=== PATIENT | male | born 1975 | race Caucasian/White ===

== ENCOUNTER 2018-03-14 12:08 | Observation (INO) ==
[2018-03-14] MEDS ORDERED: 0.9 % Sodium Chloride 1,000 ML IVC ONE (12:38)
[2018-03-14] MEDS ORDERED: Doxycycline 100 MG CAPSULE PO ONE (12:43)
--- NOTE | 2018-03-14 12:44 | Emergency Department Note ---
Disposition Clinical Impression: Lingular pneumonia, Hyponatremia Disposition: Home, Self-Care Condition: Good Time of Disposition: 08:30 (Dr Brantley) General Adult HPI - General Chief complaint: ED General Medical Stated complaint: Snake Bite Time Seen by Provider: 03/14/18 12:18 Source: patient Mode of arrival: ambulatory Limitations: no limitations Nursing Notes Reviewed: Yes Vital Signs Reviewed: Yes - History of Present Illness HPI Narrative: 42-year-old male who was supposed to come to the ED last night secondary to snakebite. He states he was been approximately 1-2 weeks ago but appeared to have improving snakebite area. He states having intermittent chills with fever in the last week. He also adds having multiple tick bites in the last 2 weeks or so. He denies any sick contacts or any changes in his bladder or bowel habits. He states fever seems to improve with over-the- counter medication. He was given Bactrim by his friend for 2 days with no improvement. Onset (ago): week(s) (1) Location: other (Generalized body aches with intermittent fever) Radiation: non-radiation Pain Severity: mild Quality: aching Consistency: constant (Waxing and waning) Improves with: nothing Worsens with: nothing Associated symptoms: Reports: fever/chills, headaches, malaise, weakness. Denies: confusion, chest pain, cough, diaphoresis, rash, seizure, shortness of breath, syncope Treatments Prior to Arrival: none - Related Data Previous Rx's Medication Instructions Recorded Cefuroxime PO [Ceftin] 500 mg PO Q12HR #10 tablet 03/16/18 Doxycycline 100 mg PO BID #10 capsule 03/16/18 Lactobacillus [Culturelle] 1 each PO BID #10 cap.sprink 03/16/18 Allergies Allergy/AdvReac Type Severity Reaction Status Date / Time No Known Allergies Allergy Verified 03/14/18 12:09 All systems ED: reviewed and negative except as stated. Review of Systems: As Per HPI Past Medical History - Past Medical History Medical history: Reports: no medical history Psychiatric history: Reports: no psych history - Social History Smoking Status: Current every day smoker Smokeless Tobacco Status: No Alcohol use: Reports: occasionally Drug use: Reports: none Physical Exam - General Limitations: no limitations General appearance: alert, in no apparent distress - Head Head exam: atraumatic, normocephalic, normal inspection - Eye Eye exam: Present: normal appearance, PERRL, EOMI - ENT ENT exam: normal exam, normal oropharynx, mucous membranes moist - Neck Neck exam: Present: normal inspection, full ROM, trachea midline. Absent: meningismus, lymphadenopathy - Chest Chest inspection: Present: normal inspection, symmetric chest wall rise - Respiratory Respiratory exam: Present: normal lung sounds bilaterally - Cardiovascular Cardiovascular exam: Present: regular rate, normal rhythm, normal heart sounds - Abdominal Exam Abdominal exam: Present: soft, Non-Tender. Absent: tenderness, distention, guarding, rebound, rigidity - Extremities Exam Extremities exam: Present: normal inspection, full ROM. Absent: tenderness, pedal edema - Back Exam Back exam: Present: normal inspection, full ROM. Absent: tenderness - Neurological Exam Neurological exam: Present: alert, oriented X3 - Psychiatric Psychiatric exam: Present: normal affect, normal mood - Skin Skin exam: Present: warm, dry, pallor. Absent: diaphoresis - Expanded Skin Exam Type of lesion: Present: bite/sting (Notable in bilateral lower extremities and the right patella fossa. Snake bite on the right lower posterior leg is clear dry intact with no surrounding erythema, induration or fluctuance.) Course Vital Signs Temperature 100.3 F H 03/14/18 12:09 Pulse Rate 104 03/14/18 12:09 Respiratory Rate 16 03/14/18 12:09 Blood Pressure 105/71 03/14/18 12:09 O2 Sat by Pulse Oximetry 95 03/14/18 12:09 Temperature 97.8 F 03/16/18 06:00 Pulse Rate 81 03/16/18 06:00 Respiratory Rate 17 03/16/18 06:00 Blood Pressure 95/59 03/16/18 06:00 O2 Sat by Pulse Oximetry 97 03/16/18 11:10 Oxygen Delivery Oxygen Delivery Room Air Medical Decision Making - [facility] Narrative Medical decision making narrative: Nontoxic appearing patient with intermittent bouts of fever and chills. He is positive for lingular pneumonia on chest x-ray. The patient was given doxycycline initially for concern for potential is tick bite complication. The patient also was given ceftriaxone for the pneumonia. He will be admitted to the hospital for further treatment and evaluation. - Medical Records Medical records reviewed: Yes I reviewed the patient's medical records. - Lab Data Lab results reviewed: Yes I reviewed the patient's lab results. Result diagrams: 05/22/18 06:30 03/16/18 06:30 Lab Results 03/14/18 03/14/18 03/14/18 Range/Units 13:00 13:00 13:00 WBC 5.1 (4.3-11.1) K/mcL RBC 4.82 (4.19-5.50) M/mcL Hgb 14.7 (12.9-16.9) g/dL Hct 42.2 (37.5-50.1) % MCV 87.6 (83.0-100.0) fL MCH 30.5 (28.0-33.3) pg MCHC 34.8 (31.6-35.5) g/dL RDW 12.7 (11.5-14.5) % Plt Count 223 (140-400) K/mcL MPV 8.6 L (9.4-12.4) fL Seg Neutrophils % 46.0 % Band Neutrophils % 28.0 H (0-4) % Lymphocytes % 18.0 % Basophils % 2.0 % Metamyelocytes % 4.0 H (0) % Myelocytes % 2.0 H (0) % Neutrophils # 3.8 (1.6-8.9) K/mcL Lymphocytes # 0.9 (0.6-4.6) K/mcL Basophils # 0.1 (0.0-0.2) K/mcL ESR 18 H (0-15) mm/hr Sodium 127 L (136-145) mEq/L Potassium 4.2 (3.5-5.1) mEq/L Chloride 94 L (98-107) mEq/L Carbon Dioxide 27 (23-29) mEq/L BUN 13 (6-20) mg/dL Creatinine 1.17 (0.70-1.30) mg/dL Est GFR ( Amer) > 60 (> 60) Est GFR (Non-Af Amer) > 60 (> 60) BUN/Creatinine Ratio 11 (6-26) Glucose 99 (70-105) mg/dL Calculated Osmolality 264 L (280-300) Calcium 8.7 (8.6-10.3) mg/dL Magnesium 2.3 (1.6-2.6) mg/dL Total Bilirubin 1.1 H (0.3-1.0) mg/dL Direct Bilirubin 0.3 H (0.0-0.2) mg/dL Indirect Bilirubin 0.8 (0.0-1.2) mg/dL AST 39 (13-39) Units/L ALT 41 (7-52) Units/L Alkaline Phosphatase 89 (34-104) Units/L Serum Total Protein 7.1 (6.4-8.9) g/dL Albumin 3.9 (3.5-5.7) g/dL Globulin 3.2 (2.4-3.5) g/dL Albumin/Globulin Ratio 1.2 (1.1-2.2) TSH 1.850 (0.340-5.600) mcIU/mL Urine Color (Yellow) Urine Clarity (Clear) Urine pH (5.0-8.0) pH Units Ur Specific [place] (1.010-1.025) Urine Protein (Neg-Trace) mg/dL Urine Glucose (UA) (Normal) mg/dL Urine Ketones (Negative) mg/dL Urine Blood (Negative) Urine Nitrite (Negative) Urine Bilirubin (Negative) Urine Urobilinogen (Normal) mg/dL Ur Leukocyte Esterase (Negative) Ur Culture Indicated? (NO) Urine Opiates Screen (Eillvg=179) ng/mL Ur Oxycodone Screen (Cutoff= 100) ng/mL Ur Barbiturates Screen (Xjsymp=075) ng/mL Ur Phencyclidine Scrn (Cutoff=25) ng/mL Ur Amphetamines Screen (Zlbpom=1317) ng/mL U Benzodiazepines Scrn (Dtuwhv=191) ng/mL Urine Cocaine Screen (Cutoff= 300) ng/mL U Marijuana (THC) Screen (Cutoff = 50) ng/mL NINA Screen (None Detected) 03/14/18 03/14/18 03/14/18 Range/Units 13:00 15:02 15:02 WBC (4.3-11.1) K/mcL RBC (4.19-5.50) M/mcL Hgb (12.9-16.9) g/dL Hct (37.5-50.1) % MCV (83.0-100.0) fL MCH (28.0-33.3) pg MCHC (31.6-35.5) g/dL RDW (11.5-14.5) % Plt Count (140-400) K/mcL MPV (9.4-12.4) fL Seg Neutrophils % % Band Neutrophils % (0-4) % Lymphocytes % % Basophils % % Metamyelocytes % (0) % Myelocytes % (0) % Neutrophils # (1.6-8.9) K/mcL Lymphocytes # (0.6-4.6) K/mcL Basophils # (0.0-0.2) K/mcL ESR (0-15) mm/hr Sodium (136-145) mEq/L Potassium (3.5-5.1) mEq/L Chloride (98-107) mEq/L Carbon Dioxide (23-29) mEq/L BUN (6-20) mg/dL Creatinine (0.70-1.30) mg/dL Est GFR ( Amer) (> 60) Est GFR (Non-Af Amer) (> 60) BUN/Creatinine Ratio (6-26) Glucose (70-105) mg/dL Calculated Osmolality (280-300) Calcium (8.6-10.3) mg/dL Magnesium (1.6-2.6) mg/dL Total Bilirubin (0.3-1.0) mg/dL Direct Bilirubin (0.0-0.2) mg/dL Indirect Bilirubin (0.0-1.2) mg/dL AST (13-39) Units/L ALT (7-52) Units/L Alkaline Phosphatase (34-104) Units/L Serum Total Protein (6.4-8.9) g/dL Albumin (3.5-5.7) g/dL Globulin (2.4-3.5) g/dL Albumin/Globulin Ratio (1.1-2.2) TSH (0.340-5.600) mcIU/mL Urine Color Yellow (Yellow) Urine Clarity Clear (Clear) Urine pH 6.0 (5.0-8.0) pH Units Ur Specific [place] 1.010 (1.010-1.025) Urine Protein Negative (Neg-Trace) mg/dL Urine Glucose (UA) Normal (Normal) mg/dL Urine Ketones Negative (Negative) mg/dL Urine Blood Negative (Negative) Urine Nitrite Negative (Negative) Urine Bilirubin Negative (Negative) Urine Urobilinogen Normal (Normal) mg/dL Ur Leukocyte Esterase Negative (Negative) Ur Culture Indicated? NO (NO) Urine Opiates Screen Negative (Tbyqfc=357) ng/mL Ur Oxycodone Screen Negative (Cutoff= 100) ng/mL Ur Barbiturates Screen Negative (Ynqqly=038) ng/mL Ur Phencyclidine Scrn Negative (Cutoff=25) ng/mL Ur Amphetamines Screen Negative (Xpmanm=8476) ng/mL U Benzodiazepines Scrn Negative (Knkstl=618) ng/mL Urine Cocaine Screen Negative (Cutoff= 300) ng/mL U Marijuana (THC) Screen Negative (Cutoff = 50) ng/mL NINA Screen NONE DETECTED (None Detected) - Radiology Data Radiology results reviewed: Yes I reviewed the patient's radiology results. Chest X-Ray 03/14/18 14:00 IMPRESSION: Lingular pneumonia. D/ / Markus Nur MD / Markus Nur MD Interpreting Provider: Markus Nur MD
[2018-03-14 13:04] LABS: Basophils # 0.1 K/mcL (0.0-0.2); Hematocrit 42.2 % (37.5-50.1); Hemoglobin 14.7 g/dL (12.9-16.9); Mean Corpuscular HGB Conc 34.8 g/dL (31.6-35.5); Mean Corpuscular Hemoglobin 30.5 pg (28.0-33.3); Mean Corpuscular Volume 87.6 fL (83.0-100.0); Mean Platelet Volume 8.6 fL (9.4-12.4); Platelet Count 223 K/mcL (140-400); Red Blood Count 4.82 M/mcL (4.19-5.50); Red Cell Distribution Width 12.7 % (11.5-14.5)
[2018-03-14 13:20] LABS: Lymphocytes # 0.9 K/mcL (0.6-4.6); Neutrophils # 3.8 K/mcL (1.6-8.9)
[2018-03-14 13:23] LABS: Alanine Aminotransferase 41 Units/L (7-52); Albumin 3.9 g/dL (3.5-5.7); Albumin/Globulin Ratio 1.2 (1.1-2.2); Alkaline Phosphatase 89 Units/L (34-104); Aspartate Amino Transferase 39 Units/L (13-39); BUN/Creatinine Ratio 11 (6-26); Bilirubin,Direct 0.3 mg/dL (0.0-0.2); Bilirubin,Indirect 0.8 mg/dL (0.0-1.2); Bilirubin,Total 1.1 mg/dL (0.3-1.0); Blood Urea Nitrogen 13 mg/dL (6-20); Calcium 8.7 mg/dL (8.6-10.3); Carbon Dioxide 27 mEq/L (23-29); Chloride 94 mEq/L (98-107); Globulin 3.2 g/dL (2.4-3.5); Glucose 99 mg/dL (70-105); Magnesium 2.3 mg/dL (1.6-2.6); Osmolality,Calculated 264 (280-300); Potassium 4.2 mEq/L (3.5-5.1); Sodium 127 mEq/L (136-145); Total Protein 7.1 g/dL (6.4-8.9); eGFR For African Americans > 60 (> 60); eGFR For Non-African Americans > 60 (> 60)
[2018-03-14] MEDS ORDERED: cefTRIAXone 2,000 MG in 0.9 % Sodium Chloride Mini Bag 100 ML IVPB ONE (14:33)
[2018-03-14 15:08] LABS: Bilirubin,Urine Negative (Negative); Blood,Urine Negative (Negative); Clarity,Urine Clear (Clear); Color,Urine Yellow (Yellow); Glucose,Urine (UA) Normal (Normal); Ketones,Urine Negative (Negative); Leukocyte Esterase,Urine Negative (Negative); Nitrite,Urine Negative (Negative); Protein,Urine Negative (Neg-Trace); Urobilinogen,Urine Normal (Normal)
[2018-03-14 15:19] LABS: Amphetamine Screen,Urine Negative ng/mL (Cutoff=1000); Barbiturate Screen,Urine Negative ng/mL (Cutoff=200); Benzodiazepines Screen,Urine Negative ng/mL (Cutoff=200); Cannabinoid Screen,Urine Negative ng/mL (Cutoff = 50); Cocaine Screen,Urine Negative ng/mL (Cutoff= 300); Opiate Screen,Urine Negative ng/mL (Cutoff=300); Phencyclidine Screen,Urine Negative ng/mL (Cutoff=25)
[2018-03-14] MEDS ORDERED: Ketorolac 30 MG/ML VIAL IVP PRN (16:33)
[2018-03-14] MEDS ORDERED: Ondansetron 4 MG/2 ML VIAL IVP PRN (16:33)
[2018-03-14] MEDS ORDERED: Naloxone 0.4 MG/ML INJ IVP PRN (16:33)
--- NOTE | 2018-03-14 18:25 | Internal Med History&Physical ---
Date of Encounter: 03/14/18 Time of Encounter: 17:55 Assessment and Plan (1) Lingular pneumonia Current visit: Yes Status: Acute He has been started on Rocephin and doxycycline. Will add lactobacillus. Recheck labs in a.m. 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 Will recheck labs in a.m. Internal Medicine - H&P: HPI Chief complaint: Fevers, chills, weakness Admitted From: Emergency Dept Plans for Post Hospital Care: Home History of present illness: Mr. Paez is a 42 year old male who came to emergency room complaining of two- week history of fevers chills and weakness. He denies nausea vomiting diarrhea or cough. He has no significant pain. He was evaluated in emergency room and found to have bandemia and hyponatremia with lingular infiltrate on chest x- ray. He was admitted to [facility] floor for ongoing care needs. Respiratory history is significant for having smoked from age [age] never exceeding 1 pack per day. He does not have documented chronic lung disease. He denies pharyngitis or rhinorrhea. He reports he had snakebite on his left calf approximately 2 weeks ago but felt fully recovered after 1 week. He removed approximately 3 ticks from his skin 1 week ago with attachment time less than 6 hours. He has not noted any rashes. Past Med Surg Social Fam HX - Past Medical History Medical history: no medical history Psychiatric history: no psych history - Social History Smoking Status: Current every day smoker Smokeless Tobacco Status: No Alcohol use: occasionally Drug use: none Internal Medicine - H&P: Meds No Known Home Drugs 03/14/18 [History] 3 Allergy/AdvReac Type Severity Reaction Status Date / Time No Known Allergies Allergy Verified 03/14/18 12:09 All Systems PM: A 10-system review of systems was performed and is negative for pertinent findings except as documented above in the HPI. Review of systems: Gen.: He states his weight has been stable the past few months Cardiovascular: He denies hypertension PR heart failure angina DVT or pulmonary embolus Respiratory: As per history of present illness GI: Denies disorders of his liver gallbladder or exocrine pancreas : He denies hematuria dysuria or kidney stones Neurologic: She denies large distribution strokes or seizures. Endocrine: He denies diabetes thyroid disease or hyperlipidemia Hematology/oncology: Denies blood disorders cancers or anemia Psychiatric: He denies anxiety depression or other mental health issues [place] skeletal: He denies arthritis gout or other bone joint or muscle disorders. - Constitutional Vitals: Temp Pulse Resp BP Pulse Ox 97.7 F 83 17 90/62 95 03/14/18 16:02 03/14/18 16:02 03/14/18 16:02 03/14/18 16:02 03/14/18 16:02 Exam: Gen.: He is a well-developed well-nourished male resting comfortably in bed who appears in no acute distress at present time. He complaints of fatigue. HEENT: Head is atraumatic and normocephalic. Eyes: EOMI. There is no scleral icterus. Mouth: Mucosa is moist. Neck: Supple and nontender. There is no thyromegaly or adenopathy noted. Heart: Regular without murmurs gallops or ectopics Lungs: No wheezes or crackles are heard. Abdomen: Soft and nontender. No masses or guarding are noted. Extremities: There is no cyanosis edema or clubbing noted. Dorsalis pedis and posttibial pulses are 2 over 2 bilaterally. Neurologic: Mental status: He is talkative and a good historian. Cranial nerves : Smile is symmetric. Forehead wrinkles bilaterally. Tongue protrudes midline. EOMI. Motor: There is no pronator drift. Cerebellar: Finger to nose is intact bilaterally. Skin: Warm and dry. There are scattered 1-2 mm very pale macular areas on his abdominal wall but not on extremities or back. Internal Med - H&P Results - Labs CBC & Chem 7: 03/14/18 13:00 03/14/18 13:00
[2018-03-14] MEDS: Nicotine 21 MG PATCH.TD24 TD SCH (20:40)
[2018-03-15] MEDS: Acetaminophen 325 MG TABLET PO PRN ×2 (02:20→20:32)
[2018-03-15 08:50] LABS: Hematocrit 41.5 % (37.5-50.1); Hemoglobin 14.4 g/dL (12.9-16.9); Mean Corpuscular HGB Conc 34.7 g/dL (31.6-35.5); Mean Corpuscular Hemoglobin 30.5 pg (28.0-33.3); Mean Corpuscular Volume 87.9 fL (83.0-100.0); Mean Platelet Volume 9.3 fL (9.4-12.4); Platelet Count 179 K/mcL (140-400); Red Blood Count 4.72 M/mcL (4.19-5.50); Red Cell Distribution Width 12.8 % (11.5-14.5)
[2018-03-15] MEDS: Nicotine 21 MG PATCH.TD24 TD SCH (09:25)
[2018-03-15 10:08] LABS: BUN/Creatinine Ratio 16 (6-26); Blood Urea Nitrogen 14 mg/dL (6-20); Calcium 8.5 mg/dL (8.6-10.3); Carbon Dioxide 27 mEq/L (23-29); Chloride 99 mEq/L (98-107); Glucose 96 mg/dL (70-105); Osmolality,Calculated 272 (280-300); Potassium 4.1 mEq/L (3.5-5.1); Sodium 131 mEq/L (136-145); eGFR For African Americans > 60 (> 60); eGFR For Non-African Americans > 60 (> 60)
--- NOTE | 2018-03-15 10:32 | Internal Med Progress Note ---
Date of Encounter: 03/15/18 Time of Encounter: 10:23 - Assessment and plan (1) Lingular pneumonia Current Visit: Yes Status: Acute Assessment and plan: March 15. Continue Rocephin, doxycycline, and lactobacillus. (2) Hyponatremia Current Visit: Yes Status: Acute Assessment and plan: March 15. Improved. Will recheck labs in a.m. Anticipate discharge home tomorrow if stable. - Subjective Interval history: March 15. He has no new complaints and feels better. - Constitutional Vitals: Temp Pulse Resp BP Pulse Ox 97.8 F 83 17 97/68 96 03/15/18 06:00 03/15/18 09:34 03/15/18 06:00 03/15/18 09:34 03/15/18 06:00 Exam: He is resting comfortably in bed and appears in no acute distress. His affect is bright and cheerful. I reviewed his medications. I discussed pertinent lab results with him. Internal Medicine: Result - Labs CBC & Chem 7: 03/15/18 07:45 03/15/18 07:45 Labs: Short CBC 03/15/18 Range/Units 07:45 WBC 5.5 (4.3-11.1) K/mcL Hgb 14.4 (12.9-16.9) g/dL Hct 41.5 (37.5-50.1) % Plt Count 179 (140-400) K/mcL BMP 03/15/18 07:45 Sodium 131 L Potassium 4.1 Chloride 99 Carbon Dioxide 27 BUN 14 Creatinine 0.89 Glucose 96 Calcium 8.5 L Consult Discharge Plan - Plan Referrals: NONE,PCP [Primary Care Provider] - 1 week
[2018-03-15] MEDS: cefTRIAXone 1,000 MG in Water for inj. (sterile) 20 ML 10 ML IVP SCH (11:55)
[2018-03-15] MEDS: Doxycycline 100 MG in 0.9 % Sodium Chloride Mini Bag 100 ML IVPB SCH ×2 (11:56→12:31)
--- NOTE | 2018-03-15 14:41 | Electrocardiograph Report ---
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
[2018-03-15] MEDS: Lactobacillus 1 EACH CAP.SPRINK PO SCH (20:32)
[2018-03-16] MEDS: Doxycycline 100 MG in 0.9 % Sodium Chloride Mini Bag 100 ML IVPB SCH ×2 (01:05→11:01)
[2018-03-16 06:55] VITALS: BP 95/59
[2018-03-16 07:08] LABS: Hematocrit 39.3 % (37.5-50.1); Hemoglobin 13.3 g/dL (12.9-16.9); Mean Corpuscular HGB Conc 33.8 g/dL (31.6-35.5); Mean Corpuscular Hemoglobin 29.4 pg (28.0-33.3); Mean Corpuscular Volume 86.8 fL (83.0-100.0); Platelet Count 206 K/mcL (140-400); Red Blood Count 4.53 M/mcL (4.19-5.50)
[2018-03-16 07:31] LABS: BUN/Creatinine Ratio 16 (6-26); Blood Urea Nitrogen 11 mg/dL (6-20); Calcium 8.4 mg/dL (8.6-10.3); Carbon Dioxide 26 mEq/L (23-29); Chloride 104 mEq/L (98-107); Glucose 98 mg/dL (70-105); Osmolality,Calculated 279 (280-300); Potassium 3.8 mEq/L (3.5-5.1); Sodium 135 mEq/L (136-145); eGFR For African Americans > 60 (> 60); eGFR For Non-African Americans > 60 (> 60)
[2018-03-16] MEDS: Lactobacillus 1 EACH CAP.SPRINK PO SCH (07:45)
[2018-03-16] MEDS: Nicotine 21 MG PATCH.TD24 TD SCH (07:45)
[2018-03-16 09:04] LABS: Lymphocytes # 2.8 K/mcL (0.6-4.6); Monocytes # 0.3 K/mcL (0.0-1.3); Neutrophils # 4.7 K/mcL (1.6-8.9); Platelet Estimate Normal (Normal); Reactive Lymphocytes Present (Not Present)
--- NOTE | 2018-03-16 10:11 | Discharge Summary ---
Date of Encounter: 03/16/18 Time of Encounter: 10:00 - Discharge Diagnosis (1) Lingular pneumonia Priority: Primary Status: Acute (2) Hyponatremia Priority: Secondary Status: Acute Hospital course: Mr. Paez is a 42 year old male who came to emergency room complaining of two- week history of fevers chills and weakness. He denies nausea vomiting diarrhea or cough. He has no significant pain. He was evaluated in emergency room and found to have bandemia and hyponatremia with lingular infiltrate on chest x- ray. He was admitted to [facility] for ongoing care needs. Initial orders were written by the emergency room physician. I saw him on March 14 and performed the history and physical. He was started on IV Rocephin and doxycycline with lactobacillus. He had clinical improvement with less dyspnea and less bandemia present by time of discharge. He will continue with antibiotic and probiotic for 5 additional days at discharge. Sodium level improved to 135 by day of discharge. His PCP can monitor this. On March 16 he felt stable for discharge home. He chose to follow with Dr. Lucia. Room air oximetry will be checked on 6 minute walk prior to discharge. - Time Spent with Patient Total time spent providing and/or coordinating discharge services: - Discharge Medications Prescriptions: Cefuroxime PO [Ceftin] 500 mg PO Q12HR #10 tablet Doxycycline 100 mg PO BID #10 capsule Lactobacillus [Culturelle] 1 each PO BID #10 cap.sprink Home Medications: Cefuroxime PO [Ceftin] 500 mg PO Q12HR #10 tablet 03/16/18 [Rx] Doxycycline 100 mg PO BID #10 capsule 03/16/18 [Rx] Lactobacillus [Culturelle] 1 each PO BID #10 cap.sprink 03/16/18 [Rx] Allergies/Adverse Reactions: 3 Allergy/AdvReac Type Severity Reaction Status Date / Time No Known Allergies Allergy Verified 03/14/18 12:09 Date of admission: 03/14/18 15:29 Primary care physician: Kiarra Lucia M.D. - Constitutional Vitals: Temp Pulse Resp BP Pulse Ox 97.8 F 81 17 95/59 97 03/16/18 06:00 03/16/18 06:00 03/16/18 06:00 03/16/18 06:00 03/16/18 07:49 - Patient Status Disposition: Home, Self-Care Functional capacity at discharge: independent ambulation Overall status at discharge: patient is progressing back to baseline - Discharge Instructions Follow Up With: Kiarra Lucia MD [Partnered Physician] - 1 week - Diet and Activity Activity: resume usual activities as tolerated Diet: advance to your usual diet
[2018-03-16] MEDS: cefTRIAXone 1,000 MG in Water for inj. (sterile) 20 ML 10 ML IVP SCH (11:01)
[2018-03-17 15:11] LABS: ANA IgG by ELISA NONE DETECTED (None Detected)
== END 2018-03-16 11:13 | disposition home or self-care (01) ==
LOC: INPPIK 12:08 → EMEROOPIK 12:08 → INPPIK 16:04
PROVIDERS: ADMIT Internal Medicine; ATTEND Internal Medicine